=== PATIENT | male | born 1955 | race Caucasian/White ===

== ENCOUNTER 2019-10-16 12:14 | Observation (INO) ==
[2019-10-16 13:00] LABS: INFLUENZA A NEGATIVE (NEGATIVE); INFLUENZA B NEGATIVE (NEGATIVE)
[2019-10-16 13:02] LABS: BASO# 0.02 X1000 (0.0-0.2); BASO% 0.2 % (0.0-0.8); EOS# 0.03 X1000 (0.0-0.7); EOS% 0.3 % (0.0-10.0); HEMOGLOBIN 17.5 g/dL (14.0-18.0); IMM GRAN# 0.02 X1000 (0.0-0.04); IMM GRAN% 0.2 % (0.0-0.5); LYMPH# 0.35 X1000 (1.2-3.4); LYMPH% 3.3 % (20.5-51.1); MCH 30.9 PG (27-31); MCHC 34.3 g/dL (33-37); MCV 89.9 FL (81-99); MONO# 0.89 X1000 (0.11-0.59); MONO% 8.4 % (1.7-9.3); MPV 11.1 FL (7.4-10.4); NEUT# 9.33 X1000 (1.4-6.5); NEUT% 87.6 % (42.2-75.2); PLT 124 X1000 (130-400); RBC 5.67 XMIL (4.7-6.1); RDW 12.3 % (11.5-14.5); WBC 10.64 X1000 (4.8-10.8)
[2019-10-16 13:06] LABS: PROTIME 13.7 Seconds (11.0-16.0)
--- NOTE | 2019-10-16 13:09 | Diag Imaging Result Doc PS360 ---
EXAM: CHEST-1 VIEW - 10/16/2019 HISTORY: SEPSIS WORKUP TECHNIQUE: One view chest COMPARISON: 11/29/2010 FINDINGS: Heart size is normal. There is right basilar granuloma from old granulomatous disease similar to prior. The lungs otherwise appear clear. There is no pleural effusion or pneumothorax identified. IMPRESSION: No evidence of acute disease. Electronically signed by Naeem Cruz 10/16/2019 1:07 PM
[2019-10-16 13:16] LABS: URINE SOURCE CLEAN CATCH
[2019-10-16 13:18] LABS: AGAP 19; ALKALINE PHOSPHATASE 87 U/L (32-122); BUN 20 mg/dL (8-22); CALCIUM 9.5 mg/dL (8.8-10.2); CHLORIDE 102 mmol/L (98-107); CK PROFILE 48 U/L (24-204); COSMO 298; CREATININE 1.1 mg/dL (0.7-1.2); ESTIMATED GFR > 60; GLUCOSE 314 mg/dL (70-104); GOT 22 U/L (10-34); GPT 28 U/L (10-44); POTASSIUM 4.4 mmol/L (3.5-5.1); SODIUM 142 mmol/L (136-145); TCO2 21 mmol/L (25-35); TOTAL PROTEIN 7.6 g/dL (6.3-8.3)
[2019-10-16 13:21] LABS: BILIRUBIN URINE NEGATIVE (NEGATIVE); BLOOD URINE NEGATIVE (NEGATIVE); COLOR YELLOW; GLUCOSE URINE >1000 mg/dL (NEGATIVE); KETONE URINE 60 mg/dL (NEGATIVE); LEUKOCYTES URINE NEGATIVE (NEGATIVE); NITRITE URINE NEGATIVE (NEGATIVE); PH URINE 5.5; PROTEIN URINE NEGATIVE (NEGATIVE); SP GRAVITY URINE 1.037; TURBIDITY URINE CLEAR (CLEAR); UROBILINOGEN URINE NORMAL (NORMAL)
[2019-10-16 13:22] LABS: UR EPITHELIAL CELLS <10 /HPF (<10); URINE BACTERIA NEGATIVE /HPF; URINE RBC <10 /HPF (<10); URINE WBC <10 /HPF (<10)
[2019-10-16] MEDS: OFIRMEV 1000 MG/ISOTONIC SOLN 1,000 MG/100 ML BOTTLE IV SCH ×2 (13:24→23:21)
[2019-10-16] MEDS: NS 1,000 ML IV ONE ×2 (13:37→14:24)
[2019-10-16] MEDS ORDERED: NS 1,000 ML IV ONE ×3 (14:12→20:24)
[2019-10-16] MEDS ORDERED: LEVAQUIN 500 MG in NS 100 ML IV ONE (14:45)
[2019-10-16] MEDS ORDERED: LEVAQUIN 500 MG/D5W 500 MG/100 ML IVPB IV ONE (15:00)
--- NOTE | 2019-10-16 17:29 | EKG Report ---
Test Performed on : 10/16/2019 12:42:56 PM Test Reason : tachycardia Blood Pressure : / mmHG Vent. Rate : 109 BPM Atrial Rate : 109 BPM P-R Int : 170 ms QRS Dur : 076 ms QT Int : 336 ms P-R-T Axes : 044 -71 030 degrees QTc Int : 452 ms Sinus tachycardia. Left axis deviation Possible Lateral infarct , age undetermined Inferior infarct (cited on or before 29-NOV-2010) Abnormal ECG When compared with ECG of 29-APR-2011 12:25, Borderline criteria for Lateral infarct are now present Questionable change in initial forces of Inferior leads Unconfirmed Result
[2019-10-16] MEDS ORDERED: ZOFRAN ODT PO PRN (18:28)
--- NOTE | 2019-10-16 19:39 | Diag Imaging Result Doc PS360 ---
EXAM: CT ABD/PELVIS W/IV CONT ONLY - 10/16/2019 HISTORY: nausea and vomiting TECHNIQUE: CT abdomen/pelvis with intravenous contrast COMPARISON: None. FINDINGS: The visualized lung bases appear clear except for mild dependent atelectasis and a calcified granuloma from old granulomatous disease. The liver is of diffusely decreased attenuation consistent with fatty infiltration. There is no evidence of focal liver lesion. There are no substantial abnormalities of the spleen, adrenal glands, pancreas identified. There are no calcified gallstones or pericholecystic inflammation seen. The bilateral kidneys enhance homogeneously. There is no hydronephrosis. There are no substantial enlarged lymph nodes identified. There are lumbar spine degenerative changes noted. There is apparent mild thickening of the gastric bell. There is borderline distention of proximal small bowel with retained fluid. There is retained fluid in the colon, and there is a suggestion of mild wall thickening along the transverse colon. These findings suggest gastroenterocolitis. There is no discrete bowel obstruction. The appendix is not discretely visualized. There is retained fecal debris in the rectosigmoid colon. There is no abscess identified. There is no free fluid or free air identified. IMPRESSION: Apparent gastroenterocolitis. No abscess. No free air. Fatty infiltration of liver. No evidence of focal liver lesion. This exam was performed using automated exposure control, adjustment of mA or kV according to patient size, and/or use of iterative reconstruction technique. Electronically signed by Naeem Cruz 10/16/2019 7:36 PM
--- NOTE | 2019-10-17 11:16 | HISTORY AND PHYSICAL ---
CHIEF COMPLAINT: Nausea, vomiting, diarrhea, and fever. HISTORY OF PRESENT ILLNESS: This is a 64-year-old gentleman with a history of diabetes mellitus, high cholesterol, and hypertension. He presented to the emergency room complaining of nausea, vomiting, and diarrhea, along with fevers, abdominal cramping that started about 5 in the morning. The patient had been with a grandchild who had the same symptoms prior to this. He also stated that while he was in the emergency room, his son presented to the emergency room within a few hours after him with the same symptoms. CT of the abdomen and pelvis revealed gastroenterocolitis and fatty infiltration of the liver. He denied any black or bloody vomitus or stools, any chest pain, palpitations, shortness of breath. PAST MEDICAL HISTORY: Hypertension and diabetes mellitus. PAST SURGICAL HISTORY: Denies. SOCIAL HISTORY: He denies alcohol, tobacco, or illicit drug use. He is and lives with his . He has children that are close. ALLERGIES: Azithromycin with unknown reaction. FAMILY HISTORY: Positive for diabetes mellitus and hypertension in first-degree relatives. REVIEW OF SYSTEMS: Discussed with the patient with pertinent positives stated in the HPI. He denied any syncope or dizziness, any chest pain or palpitations, shortness of breath, cough, any black or bloody vomitus or stools, any hematuria, dysuria, frequency, urgency. PHYSICAL EXAMINATION: GENERAL: This is a 64-year-old gentleman who is lying on the bed in no distress. VITAL SIGNS: Blood pressure is 117/73, with a heart rate of 84, respirations are 16, temperature is 98.2 degrees oral, with room air saturations 97%. EYES: Pupils equal, round, react to light. EOMs are intact. Sclerae are anicteric. HENT: Head is normocephalic, atraumatic. Mucous membranes are moist. NECK: Supple. Trachea midline. CARDIOVASCULAR: Regular rate and rhythm. S1 and S2 are appreciated. No murmurs. EXTREMITIES: Calves are nontender bilateral. He has no lower extremity edema. Peripheral pulses are palpable x4 extremities. PULMONARY: Breath sounds are clear with no increased work of breathing noted. Chest rises and falls symmetrically with respiration. Chest wall is nontender to palpation. GASTROINTESTINAL: Abdomen is soft, nontender, nondistended, with bowel sounds in all 4 quadrants. GENITOURINARY: No CVA nor suprapubic tenderness. NEUROLOGIC: He is alert and oriented x3 with cranial nerves 2-12 grossly intact. SKIN: Warm and dry. LABS: WBC is 10.6, with hemoglobin 17.5, hematocrit 51, and platelets of 124,000. INR is 1. Sodium 142, potassium 4.4, BUN 20, creatinine 1.1, with a glucose of 314. Lactate was 2.4. Urinalysis reveals greater than 1000 glucose with 60 ketones, otherwise negative. Acetone is negative. Influenza A and B are negative. Chest x-ray, no evidence of acute disease. CT of the abdomen and pelvis, apparent gastroenterocolitis. No abscess. No free air. Fatty infiltration of the liver. ASSESSMENT AND PLAN: 1. Gastroenterocolitis. He reports one semisoft stool since admission. No further vomiting. He denies any nausea at present. He has tolerated clear liquids. We will advance his diet to a gastrointestinal soft and re-evaluate. 2. Intravascular volume depletion secondary to nausea and vomiting in a patient who was orthostatic. He received 4 L of intravenous hydration. He is no longer orthostatic. 3. Abdominal pain. This has resolved. 4. Nausea and vomiting, as stated above. 5. Hypertension. We will continue to hold his medications at present. Monitor vital signs. 6. Diabetes mellitus. We will continue pattern of blood glucose with sliding scale insulin. Blood sugar this morning was 101. We will hold his Invokana and Januvia as he is not eating. 7. Fatty liver. Aware. 8. Fever. This has resolved. 9. Plan was discussed with Dr. Irene. Further treatments pending hospital course. Dictated by NASEEM Mello for Joseph Irene MD cc: NASEEM Mello MD
[2019-10-17 11:51] VITALS: BP 139/89
--- NOTE | 2019-10-17 20:48 | DISCHARGE SUMMARY ---
ADMISSION DATE: 10/16/2019 DISCHARGE DATE: 10/17/2019 DIAGNOSES: 1. Gastroenterocolitis with he has no further symptoms. 2. Intravascular volume depletion resolved. 3. Nausea and vomiting resolved. 4. Abdominal pain resolved. 5. Hypertension. 6. Diabetes mellitus. 7. Fatty liver. 8. Fever resolved. DIAGNOSTICS: 1. Chest x-ray with no evidence of acute disease. 2. CT of the abdomen and pelvis revealed apparent gastroenterocolitis. No abscess. No free air. Fatty infiltration of the liver. No evidence of focal liver lesion. 3. Blood cultures are pending. HOSPITAL COURSE: Mr. Jimenez presented to the emergency room with abdominal pain, nausea, vomiting, diarrhea, and fever. He was found to have gastroenterocolitis and to be vascular volume depleted. Secondary to this he was given 4 L of IV hydration. He is no longer orthostatic. His abdominal pain, nausea vomiting resolved. He was tolerating clear liquids and a GI soft diet with no further abdominal pain, nausea, vomiting and thankfully he is ready for discharge. Blood sugars were in the 100 to 300 range. His flu A and B were negative. DISCHARGE PHYSICAL EXAM: Vital Signs: Blood pressure is 139/89 with heart rate of 84, respirations 16, temperature is 98.1 degrees oral with room air saturations 97. Cardiovascular: Regular rate and rhythm. S1, S2 appreciated. He has no lower extremity edema. Calves are nontender bilateral with peripheral pulses palpable x4 extremities. Pulmonary: Breath sounds are clear with no increased work of breathing noted. Gastrointestinal: Soft, nontender, nondistended with bowel sounds in all 4 quadrants. Neurologic: He is alert and oriented x3. Skin is warm and dry. DISCHARGE MEDICATIONS: 1. Pravastatin 20 mg p.o. at bedtime. 2. Januvia 100 mg p.o. at bedtime. 3. Invokana 100 mg p.o. at bedtime. 4. Celexa 20 mg p.o. at bedtime FOLLOWUP: Dr. Ty Quinones in 1 to 2 weeks. He needs to call to schedule an appointment. He has been instructed to call to be seen sooner or return to the ER for any syncope, dizziness, chest pain, palpitations, temperature greater than 101, any recurring nausea, vomiting, diarrhea, constipation, any black or bloody vomitus or stools, any shortness of breath, cough or for any questions or concerns that he may have. He is being discharged home in stable condition with family members. TIME SPENT: Greater than 30 minutes. Dictated by NASEEM Mello for Joseph Irene MD cc: NASEEM Mello MD
--- NOTE | 2019-10-18 12:46 | DISCHARGE SUMMARY ---
ADMISSION DATE: 10/16/2019 DISCHARGE DATE: 10/17/2019 HISTORY AND HOSPITAL COURSE: The patient is came in with nausea, vomiting, and diarrhea and he is stable. We will continue to follow closely. His workup was negative. He felt much better, tolerated p.o. diet without difficulty. He was told to resume his medications at discharge, Celexa 20, Invokana 100, Januvia 100, pravastatin 20. He was given a total of 4 L of fluid and had improvement in his status subsequently. DISCHARGE CONDITION: Stable. PLAN: We will continue to follow closely. cc: Joseph Irene MD
--- NOTE | 2019-11-04 17:40 | PROVIDER DOCUMENTATION ---
This chart was entered by Corinne Francis Scribe, acting as scribe for Hugo Porter MD. HPI-General Adult - General Chief Complaint: Fever Stated Complaint: VOMITING Time Seen by Provider: 10/16/19 13:05 Source: patient, family () Allergies/Adverse Reactions: Patient Allergies Allergy/AdvReac Type Severity Reaction Status Date / Time azithromycin AdvReac Unknown Verified 10/16/19 13:00 Home Medications: Home Medication List Medication Instructions Recorded Confirmed Last Taken Type Canagliflozin [Invokana] 100 mg PO QHS 10/16/19 10/16/19 Unknown History Citalopram [Celexa] 20 mg PO QHS 10/16/19 10/16/19 Unknown History Pravastatin Sodium 20 mg PO QHS 10/16/19 10/16/19 Unknown History Sitagliptin Phosphate [Januvia] 100 mg PO QHS 10/16/19 10/16/19 Unknown History - History of Present Illness -Gen Adult Nature of Presenting Problems: 63 y/o male with history of type II diabetes and hypertension presents to the ED with complaint of fever and n/v/d since 0500 today with 8-10 emesis. states granddaughter was at their home [place] night and vomited once but has fel t fine since. The patient did not get flu vaccine. Location of Pain/Injury: reports: generalized Onset/Duration: reports: this morning (0500) Timing: reports: still present Associated Symptoms: reports: diarrhea, fever/chills, nausea, vomiting Similar Symptoms Previously?: No Recently seen or treated by another doctor?: No Review of Systems - Adult - REVIEW OF SYSTEMS - ADULT Constitutional: reports: fever. denies: weight gain, weight loss Eyes: reports: no symptoms reported Ears, Nose, Mouth & Throat: reports: no symptoms reported Cardiovascular: reports: no symptoms reported Respiratory: denies: hemoptysis, pleurisy, shortness of breath Gastrointestinal: reports: diarrhea, nausea, vomiting Genitourinary: reports: no symptoms reported Musculoskeletal: reports: no symptoms reported Integumentary: reports: no symptoms reported Neurological: reports: no symptoms reported Psychiatric: reports: no symptoms reported Endocrine: reports: no symptoms reported Hematologic/Lymphatic: reports: no symptoms reported Allergic/Immunologic: reports: no symptoms reported All Other Systems: Reviewed and Negative Past History - Adult - PAST MEDICAL HISTORY-ADULT Review of Records: reports: Old Records Reviewed, Nursing Assessment Review, Medications Reviewed - IMMUNIZATION STATUS Childhood Immunizations: See Nurse Assessment Flu Vaccine: See Nurse Assessment - SOCIAL HISTORY Smoking: non-smoker Living Situation: family Physical Exam-General - PHYSICAL EXAM-ADULT Initial Vital Signs Reviewed: Yes - CONSTITUTIONAL General Appearance: alert. negative: appears well - HEAD, EARS, NOSE, MOUTH & THROAT HENMT: normocephalic/atraumatic. negative: moist mucous membranes - RESPIRATORY Respiratory: lungs clear, normal breath sounds, no respiratory distress, no accessory muscle use. negative: rales, rhonchi, wheezing - CARDIOVASCULAR Cardiovascular: no gallop, tachycardia - GASTROINTESTINAL (ABDOMEN) Abdominal Exam: normal bowel sounds, non tender, soft. negative: guarding, rebound - MUSCULOSKELETAL Extremity: normal gait, no pedal edema - SKIN Integumentary: warm. negative: diaphoresis - NEUROLOGIC Neurologic: grossly normal Progress - PLAN OF CARE/RESULTS Progress/Plan/Lab Results: Vital Signs - 8 hr 10/16/19 12:26 Temperature 101.3 F H Pulse Rate 117 H Respiratory Rate 20 Blood Pressure 131/82 O2 Sat by Pulse Oximetry 92 L Laboratory Results - last 24 hr 10/16/19 10/16/19 12:29 12:45 WBC 10.64 RBC 5.67 Hgb 17.5 Hct 51.0 MCV 89.9 MCH 30.9 MCHC 34.3 RDW Std Deviation 12.3 Plt Count 124 L MPV 11.1 H Immature Gran % (Auto) 0.2 Neut % (Auto) 87.6 H Lymph % (Auto) 3.3 L [place] % (Auto) 8.4 Eos % (Auto) 0.3 Baso % (Auto) 0.2 Immature Gran # (Auto) 0.02 Neut # (Auto) 9.33 H Lymph # (Auto) 0.35 L [place] # (Auto) 0.89 H Eos # (Auto) 0.03 Baso # (Auto) 0.02 Influenza A (Rapid) NEGATIVE Influenza B (Rapid) NEGATIVE Orders Category Date Time Status Cardiac Monitoring DIRECTED Care 10/16/19 12:29 Active IV Insertion ORDERED Care 10/16/19 12:29 Completed Notify MD of + Sepsis Screen NOW Care 10/16/19 12:29 Active Notify Physician As Ordered Care 10/16/19 12:29 Active CHEST-1 VIEW [RAD] Stat Exams 10/16/19 12:29 Taken BLOOD CULTURE [BLDCUL] Stat Lab 10/16/19 12:50 Ordered CBC WITH DIFF [HEME] Stat Lab 10/16/19 12:45 Completed CK PROFILE [SP CHEM] Stat Lab 10/16/19 12:45 Received COMPREHENSIVE METABOLIC PANEL [CHEM] Stat Lab 10/16/19 12:45 Received Flu [INFLUENZA SCREEN PL] Stat Lab 10/16/19 12:29 Completed LACTATE, PLASMA [CHEM] Lab 10/16/19 12:45 Received LACTATE, PLASMA [CHEM] Lab 10/16/19 15:30 Uncollected LACTATE, PLASMA [CHEM] Lab 10/16/19 18:30 Uncollected PROTIME WITH INR [COAG] Stat Lab 10/16/19 12:45 Received PTT [COAG] Stat Lab 10/16/19 12:45 Received TROPONIN T Stat Lab 10/16/19 12:45 Received URINALYSIS W/POSS RFLX CULT [URINALYSIS] Stat Lab 10/16/19 12:29 Uncollected Oxygen Device Stat Oth 10/16/19 12:29 Active 1414: Lactic acid 3.5. Will give another liter of fluid. 1444: Flu A and B negative. 1729: Abnormal orthostatics, will order more fluid. Result Diagrams: 10/16/19 12:45 10/16/19 12:45 - EKG 1 Time of EKG reading by physician:: 12:42 EKG Read and Signed by:: Hugo Porter EKG Interpretation (*Must complete 3 of following elements*): Abnormal Rate: 109 Rhythm: sinus tachycardia [place]: left Comments: possible lateral infarct age undetermined, inferior infarct age undetermine - XRAY 1 XRAY Study: Chest Impression: See EMR Report (EXAM: CHEST-1 VIEW - 10/16/2019 HISTORY: SEPSIS WORKUP TECHNIQUE: One view chest COMPARISON: 11/29/2010 FINDINGS: Heart size is normal. There is right basilar granuloma from old granulomatous disease similar to prior. The lungs otherwise appear clear. There is no pleural effusion or pneumothorax identified. IMPRESSION: No evidence of acute disease. Electronically signed by Naeem Cruz 10/16/2019 1:07 PM) Departure - Departure Date of Disposition Decision: 10/16/19 Time of Disposition Decision: 20:20 DIAGNOSIS: Abdominal pain Qualifiers: Abdominal location: unspecified location Qualified Code(s): R10.9 - Unspecified abdominal pain Disposition: HOME 01 Certified Medical Emergency: Emergent Condition: Good - Critical Care Note This patient required my direct & personal management of CC.: No Attestation - Physician/ FRANCISCO Attestation Patient care was provided by Advanced Practice Provider:: No The physician spent face to face time with patient:: Yes Advanced Practice Provider documentation review:: Supervising physician onsite and consulted in the evaluation and care of this patient. The physician did have a face to face encounter with the patient. This chart was documented by the indicated scribe, (Corinne Francis, [place]) and accurately reflects the services I performed and decisions made by me, Hugo Porter MD, as attested by the provider's signature.
== END 2019-10-17 14:20 | disposition home or self-care (01) ==
LOC: P.ED 12:14 → P.MEDSURG 12:14
PROVIDERS: ATTEND Internal Medicine